=== PATIENT | male | born 1980 | race Caucasian/White ===

== ENCOUNTER 2017-06-02 15:22 | Emergency (ER) | payer MEDICAID, SELFPAY ==
[2017-06-02 15:22] VITALS: BP 141/83; PULSE 107; RESP 16; TEMP 37.7; O2SAT 97; BMI 20.9
--- NOTE | 2017-06-02 15:26 | ED.RN ---
PT HAS REQUEST NO NARCOTICS.
--- NOTE | 2017-06-02 15:47 | ED.VISSUMM ---
- ER Visit Summary Date of Service: 06/02/17 Chief Complaint: [] Low lumbar back pain for a week History of Present Illness: The patient is a 37 M [] prior history of lumbar back surgery 2011 lumbar disc L4, he reports for 1 week he has had a pain since from the scar midline down to both right and left sacral areas, he has had no trauma no fever no cough he has had normal bowel bladder habits. He has no perineal anesthesia numbness no radiation to his legs he has no swelling lesions to his lumbar back or buttock area. He is in between physicians as his insurance recently changed and he has no one to see, he absolutely assures me he has had no trauma to his body in any way Physical Examination: [] Vitals are normal he is in no distress head neck chest unremarkable abdomen soft nontender the exam is unremarkable the back there is a scar in the midline he has a pain that extends from the scar that radiates down to the right and left parasacral area. There is no fullness in the buttock region. There is no signs of pilonidal cyst. The rectal exam area is unremarkable he has normal sensation is able to stand and walk without difficulty, he can toe raise heel raise knee bend and walk with no trauma trouble at all his strength was lower extremities unremarkable, he denies any bowel or bladder complaints or incontinence Test Results: [] Emergency Department Course and Treatment: [] The etiology of his pain is unclear he was told he had one lumbar disc and otherwise no other back elements. At this time there is nothing to suggest cauda equina or anything acute or life-threatening, symptoms for 1 week he has no follow-up physicians as the main reason he came to the emergency department, he understands exact diagnosis is unclear he needs outpatient follow-up, he is treated with Toradol and Norflex here, discharged to use Naprosyn and Flexeril which she has had in the past, he is referred to follow with Dr. Wilson in a few days and return for change in symptoms Treatment Plan: [] Disposition: [] Home stable Impression: [] lumbar back pain etiology unclear history of lumbar disc surgery This note was generated with [employer] dictation software. It may contain incorrect words, spelling, and punctuation that were not noted in review of the chart prior to signing ED Disposition - Plan for ED Patient: Chief Complaint: Back Referrals: Stella Schulte DO [Primary Care Provider] -
--- NOTE | 2017-06-02 15:50 | ED.DEP ---
ED Disposition - Plan for ED Patient: Chief Complaint: Back Instructions: ED Spasm Back No Trauma, ED Sprain Strain Lumbar Prescriptions: Naproxen [Naprosyn] 500 mg PO BID PRN #20 tab Cyclobenzaprine [Flexeril] 10 mg PO TID PRN #20 tab PRN Reason: Muscle Spasm Referrals: Stella Schulte DO [Primary Care Provider] - Brice Wilson DO [STAFF PHYSICIAN] -
[2017-06-02] MEDS: Ketorolac 60 MG/2 ML Vial IM (16:05)
[2017-06-02] MEDS: Orphenadrine 60 MG/2 ML Ampul IM (16:05)
== END 2017-06-02 16:45 | disposition home or self-care (01) ==
PROVIDERS: Emergency Provider Emergency Medicine
DX: M54.5 Low back pain (principal)
CPT/HCPCS: 99282

== ENCOUNTER 2017-06-06 18:15 | Emergency (ER) | payer MEDICAID, SELFPAY ==
[2017-06-02 15:22] VITALS: BP 141/83
[2017-06-06 18:16] VITALS: BP 161/101; PULSE 82; RESP 18; TEMP 36.6; O2SAT 100; BMI 19.3
[2017-06-06 18:34] VITALS: PULSE 97; O2SAT 98
--- NOTE | 2017-06-06 18:51 | RAD_ITS ---
XR Spine Lumbar 2 or 3 Views INDICATION: pt having lower back painhx of surgery COMPARISON: September 2014 TECHNIQUE: Frontal and lateral views of the lumbar spine lateral coned-down view of the lumbosacral junction FINDINGS: There are 5 lumbar-type [id number] vertebral bodies. There is normal lumbar lordosis and no evidence of scoliosis. Height of the vertebral bodies is preserved. L5-S1 disc space appears decreased. RAD/Lumbar Spine 2 or 3 Views IMPRESSION: Findings suggestive of L5-S1 degenerative disc disease at 1922 Reported and signed by: Becca Olivarez MD Electronically Signed: Becca Olivarez MD at 18:21 EST Tel , Service support ,
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
[2017-06-06] MEDS: Ketorolac 60 MG/2 ML Vial IM (18:58)
[2017-06-06 19:22] LABS: Bacteria 0 SEEN /hpf (None Seen); Mucous, Urine 0 SEEN /hpf (<or=2+); Red Blood Cells-Urine 0 SEEN /hpf (0-5); Squamous Epithelial Cells - UA 0 SEEN /hpf (0-5); White Blood Cells 0 SEEN /hpf (0-5)
[2017-06-06 19:37] LABS: Color, Urine Yellow (Yellow); Glucose, Dipstick Normal (Normal); Ketone-Dipstick Negative (Negative); Leukocyte Esterase-Dipstick Negative /ul (Negative); Nitrite-Dipstick Negative (Negative); Occult Blood-Urine Negative /ul (Negative); Protein-Dipstick 15 mg/dl (Negative); Specific Gravity, Urine 1.025 (1.002-1.030); Urine Bilirubin Dipstick Negative (Negative); Urine Clarity Clear (Clear); Urine Urobilinogen Normal (Normal)
[2017-06-06] MEDS: Orphenadrine 60 MG/2 ML Ampul IM (20:18)
--- NOTE | 2017-06-06 20:55 | ED.DEP ---
ED Disposition - Plan for ED Patient: Chief Complaint: Back Instructions: ED Sprain Strain Lumbar Prescriptions: Lidocaine [Lidoderm Patch] 1 patch TOPICAL DAILY #30 patch Additional Instructions: follow up with primary care and pain management as discussed
[2017-06-06 21:04] VITALS: PULSE 92; RESP 16; O2SAT 98
== END 2017-06-06 21:05 | disposition home or self-care (01) ==
PROVIDERS: Emergency Provider Emergency Medicine; Family Provider Family Medicine; PCP Family Medicine
DX: G89.29 Other chronic pain (principal); M54.5 Low back pain; M51.36 Other intervertebral disc degeneration, lumbar region; Z72.0 Tobacco use
CPT/HCPCS: 72100; 81001; 96372; 99282

== ENCOUNTER → 2017-06-10 10:47 | Outpatient (CLI) | payer MEDICAID, SELFPAY ==
[2017-06-06 18:16] VITALS: BP 161/101; BMI 19.3
[2017-06-10 12:21] LABS: Absolute Lymphocyte Count 2.39 X10^3/ul (0.83-4.51); Absolute Neutrophil Count 7.7 X10^3/uL (2.0-7.7); Basophil# 0.02 X10^3/uL; Basophil% 0.2 % (0-1); Eosinophil# 0.06 X10^3/uL; Eosinophils% 0.5 % (0-5); Hematocrit 39.1 % (40-54); Hemoglobin 12.6 g/dl (13.0-16.5); Lymphocyte # 2.39 X10^3/ul (4.0); Lymphocyte % 21.7 % (19-41); Mean Corp Hgb Conc 32.2 g/gl (32-36); Mean Corpuscular Hgb 30.9 pg (27.0-32.0); Mean Corpuscular Volume 95.8 fL (80-94); Mean Platelet Vol. 10.1 fl (6.2-12.0); Monocyte# 0.84 X10^3/uL; Monocyte% 7.6 % (0-10); Neutrophil % 69.8 % (47-70); Platelet Count 389 K/mm3 (150-450); RBC Distribution Width CV 14.5 % (11.6-14.6); RBC Distribution Width SD 50.3 fl (35.1-43.9); Red Blood Count 4.08 M/mm3 (4.6-6.2)
[2017-06-10 12:28] LABS: POSITIVE COUNT NO; POSITIVE DIFFERENTIAL NO; POSITIVE MORPHOLOGY NO
[2017-06-10 12:30] LABS: Color, Urine Yellow (Yellow); Glucose, Dipstick Normal (Normal); Ketone-Dipstick 5 mg/dl (Negative); Leukocyte Esterase-Dipstick 25 /ul (Negative); Nitrite-Dipstick Negative (Negative); Occult Blood-Urine 10 /ul (Negative); Protein-Dipstick Negative (Negative); Urine Bilirubin Dipstick Negative (Negative); Urine Clarity Clear (Clear); Urine Urobilinogen Normal (Normal)
[2017-06-10 12:49] LABS: Bacteria RARE /hpf (None Seen); Mucous, Urine 1+ /hpf (<or=2+); Red Blood Cells-Urine 0-5 SEEN /hpf (0-5); Squamous Epithelial Cells - UA 0-5 SEEN /hpf (0-5); White Blood Cells 0-5 SEEN /hpf (0-5)
[2017-06-10 12:50] LABS: Calcium Oxalate Crystals Ur 1+ /hpf (<or=2+)
[2017-06-10 12:55] LABS: Amphetamine Urine VISTA NEGATIVE (<1000 ng/mL); Barbiturate Urine VISTA NEGATIVE (< 200 ng/mL); Benzodiazepine Urine VISTA NEGATIVE (< 200 ng/mL); Cocaine Urine VISTA NEGATIVE (< 300 ng/mL); Ecstacy Urine VISTA NEGATIVE (< 500 ng/mL); Methadone Urine VISTA NEGATIVE (< 300 ng/mL); PCP Urine VISTA NEGATIVE (< 25 ng/mL); THC Urine VISTA NEGATIVE (< 50 ng/mL); Vista UDS pH Range 6
[2017-06-10 13:15] LABS: ALB/GLOB Ratio 1.2 RATIO (0.9-2.4); AST(SGOT) 9 U/L (15-37); Alanine Aminotransfer ALT/SGPT 22 U/L (16-61); Albumin, Serum 3.8 g/dL (3.2-5.0); Alkaline Phosphatase 73 U/L (45-117); Anion Gap 10 (5-15); BUN 14 mg/dL (7-18); Calcium,Total 8.4 mg/dL (8.5-10.1); Chloride 106 mmol/L (98-107); Cholesterol 143 mg/dL (200); Creatinine, Serum 0.82 mg/dL (0.70-1.30); EST Glomerular Filtration Rate 111 mL/min (>60); Est Glom Filt Rate - Afr Amer 135 mL/min (>60); Globulin 3.1 g/dL (2.2-4.2); Glucose 89 mg/dL (74-106); High Density Lipoprotein 34 mg/dL; Potassium 3.5 mmol/L (3.5-5.1); Protein, Total 6.9 g/dL (6.4-8.2); Sodium Level 141 mmol/L (136-145); Thyroid Stim Hormone (TSH) 0.95 uIU/mL (0.358-3.74); Triglycerides 196 mg/dL; Very Low Density Lipoprotein 39 mg/dL (5-40)
[2017-06-10 13:17] LABS: Hemoglobin A1c 5.5 % (4.2-6.3)
== END ==
PROVIDERS: Family Provider Family Medicine; PCP Family Medicine; Visit Provider Family Medicine
DX: R19.4 Change in bowel habit (principal); F32.9 Major depressive disorder, single episode, unspecified; Z13.220 Encounter for screening for lipoid disorders; Z83.3 Family history of diabetes mellitus; Z87.898 Personal history of other specified conditions
CPT/HCPCS: 36415; 80053; 80061; 80307; 81001; 83036; 84443; 85025

== ENCOUNTER → 2017-06-27 08:10 | Outpatient (CLI) | payer MEDICAID, SELFPAY ==
--- NOTE | 2017-06-27 08:28 | MRI_ITS ---
STUDY: MRI LUMBAR SPINE WITH AND WITHOUT CONTRAST REASON FOR EXAM: Male, 37 years old. Radiculopathy. Back pain and bilateral leg pain with numbness and tingling. TECHNIQUE: Standardized fat and water weighted pulse sequences were obtained in the sagittal and axial planes. 7 ml of Gadavist contrast material was administered for the contrast portion of the examination. COMPARISON: 03/15/2013. FINDINGS: T11-T12: (Sagittal only). Normal endplates. Normal disc height, hydration and morphology. Normal central canal and bilateral intervertebral neural foramina. T12-L1: (Sagittal only). Normal endplates. Normal disc height, hydration and morphology. Normal central canal and bilateral intervertebral neural foramina. Normal lumbar lordosis. There is no substantial scoliosis. Normal conus medullaris that terminates at the upper L1 vertebral body level. L1-2: Normal endplates. Normal disc height, hydration and morphology. Normal bilateral facet joints. Normal central canal and bilateral lateral recesses. Normal bilateral intervertebral neural foramina. L2-3: Normal endplates. Normal disc height, hydration and morphology. Normal bilateral facet joints. Normal central canal and bilateral lateral recesses. Normal bilateral intervertebral neural foramina. L3-4: Normal endplates. Normal disc height, hydration and morphology. Normal bilateral facet joints. Normal central canal and bilateral lateral recesses. Normal bilateral intervertebral neural foramina. L4-5: Normal endplates. Minimal disc space height narrowing. Mild loss of disc hydration. Interval resolution of the small posterior midline and caudal disc extrusion following discectomy. Left L4 hemilaminectomy defect and partial facetectomy. Left lateral extradural fat occupying the surgical tract. Normal central canal and bilateral lateral recesses. Normal bilateral intervertebral neural foramina. Mild right degenerative facet arthropathy. L5-S1: Normal endplates. Moderate disc space narrowing with mild loss of disc hydration. No extruded disc fragment. Normal central canal and bilateral lateral recesses. Normal facet joints. Normal bilateral intervertebral neural foramina. Normal visualized sacral ala. Normal visualized paraspinous soft tissue structures. No abnormal enhancing lesions intradurally and extradurally. MRI/Spine Lumbar W/WO Contrast IMPRESSION: 1. No MRI evidence of recurrent or new lumbar extruded disc fragment. 2. Interval resolution of L4-L5 posterior midline and caudal disc extrusion following discectomy. 3. Moderate L5-S1 disc space height narrowing with mild loss of disc hydration is unchanged. Electronically Signed: Preet Jo MD at 13:15 EST , Service support ,
== END ==
PROVIDERS: Family Provider Family Medicine; PCP Family Medicine; Visit Provider Family Medicine
DX: M54.16 Radiculopathy, lumbar region (principal)
CPT/HCPCS: 72158; A9585

== ENCOUNTER 2017-07-29 15:00 | Outpatient (RCR) | payer MEDICAID, SELFPAY ==
--- NOTE | 2017-06-23 13:19 | HP.PTEVAL_ITS ---
Patient's Visit Information MOMO CASTILLO is a 37 year old M referred to Physical Therapy by GIOVANNY HAMM with a diagnosis of LUMBAR POST LAMINECTOMY SYNDROME. Date of Evaluation: 06/23/17 Physical Therapist: Verna Ray Visit Plan Frequency: 2-3x /Week Duration: 4-6 Weeks Plan: AQUATIC THERAPY. POSTURE CORRECTION/STRENGTHENING, INSTRUCTION IN APPROPRIATE BODY MECHANICS AND ACTIVITY MODIFICATIONS. DLS STARTING WITH A NEUTRAL SPINE PROGRESSING ROM TOLERATED. CANDACE LE ROM, STRETCHING AND STRENGTHENING. HEP INSTRUCTION. PAIN RELEIF. - Subjective Subjective: Work/Leisure: UNEMPLOYEED SINCE 2010. Disability: NOT CURRENTLY. RE-APPLYING. Present symptoms: PAIN, NUMBNESS AND TINGLING FROM ABOUT 6 ABOVE BELLY BUTTON DOWN. DOWN BOTH LEGS. Present since: 2010. Pain Scale: WORST 10/10, LEAST 6/10. Currently: 7/10. OVER-ALL, PATIENT REPORTS HE IS WORSENING. HE REPORTS HE THINKS HIS DDD HAS SPIKED AND HE IS GETTING MORE NUMBNESS AND TINGLING IN HIS LEGS AND HIS LEGS ARE GIVING OUT MORE. Commenced as a result of: LIFTING AT WORK IN 2009 AND HERNIATED A DISK IN HIS LOW BACK. Symptoms at onset: BACK. Worse: STANDING, WALKING, SITTING, BENDING, LIFTING, REACHING, CARRYING THINGS, CAR RIDES, BUMPS IN THE CAR. Better: MASSAGE, BATH. Disturbed sleep: YES. Previous history/treatments: FIRST BACK SURGERY [address] PECK FOR HERNIATED LUMBAR DISC. 2016 SECOND BACK SURGERY AT [facility] BY DR. BISWAS. BOTH SURGERIES WERE LAMINECTOMIES OR DISCECTOMIES BUT PATIENT REPORTS HE HAS NOT HAD LUMBAR FUSION YET AND THE DOCTORS ARE TRYING TO POSTPONE FUSION LONG POSSIBLE BUT GOING FOR MRI TUESDAY AND WILL RECONSIDER AT THAT POINT. PHYSICAL THERAPY SEVERAL TIMES AND CHIROPRACTOR AND ACCUPUNCTURE, AND MASSAGE THERAPY, AND STRETCHING THERAPY. MULTIPLE ROSHAN'S - MANY. AQUATIC THERAPY HAS HELPED SOME IN THE PAST. PATIENT REPORTS HIS LEGS HAVE BEEN NUMB SINCE SURGERY 2010. OTHER: PATIENT REPORTS PAIN MGMT HAS RECOMMENDED CAUDAL TYPE PROCEEDURE. Coughing/sneezing/straining: POSITIVE. Gait: HAS TO USE A W/C NEEDED AT HOME. STATES HE IS PRETTY MUCH HOMEBOUND EXCEPT OCCASSIONAL EVENTS FOR CHILD AND MEDICAL APPOINTMENTS. DOES NOT USE CANE , CRUTCHES OR WALKER. Difficulty initiating urinatin: NO. Accidents: NO. Unexplained weight loss: NO. Imaging: RECENT LUMBAR X-RAYS - Findings suggestive of L5-S1 degenerative disc disease. PMH: TACHYCARDIA. LEFT ANKLE FX LONG TIME AGO. Recent major surgery: PACEMAKER PLACEMENT 2017 THEN A MAGNET PULLED IT OUT AT HOME ABOUT 6 MONTHS LATER. PATIENT REFUSES TO HAVE IT REPLACED. - Objective Sitting Posture: POOR. Standing Posture: POOR. Lordosis: REDUCED. Lateral shift: LEFT. Relevant shift: N/A. Active Correction of posture: WORSE. Other Observations: INDEP GAIT INTO PT WITHOUT ASSISTIVE DEVICE WITH SLOW ANTALGIC GAIT WITH MILD LIMP ON RIGHT LE. ABLE TO SLS ON EACH LEG X > 20 SEC. RIGHT ILIAC CREST HIGHER THAN LEFT. WEARING A RIGHT THIGH COMPRESSION BRACE TO HELP WITH PAIN PER PATIENT REPORT. PATIENT REPORTS HIS THIGHS SWELL AT TIMES. Motor deficit: CANDACE LE STRENGTH GROSSLY 3+ TO 4-/5 WITH MMT WITH RIGHT LE WEAKNESS GREATER THAN LEFT. RIGHT DORSIFLEXION 3-/5. Sensory deficit: ALTERED SENSATION CANDACE LE'S. DECREASED SENSATION TO LIGHT TOUCH CANDACE LE'S. ROM deficit: TIGHT CANDACE LE QUADS, HS'S, HIP FLEXORS, AND GASTROC SOLEUS COMPLEX'S. Dural Signs: POSITIVE CANDACE LE'S. Lumbar mvmt loss: flex - MOD TO TAYLOR. ext - TAYLOR. R SG - MOD TO TAYLOR. L SG - MOD TO TAYLOR. Core strength: POOR. Palpation: TENDERNESS AND PRESSURE/NUMBNESS C/O'S OF THE ENTIRE LUMBAR REGION WITH PALPATION AND HYPERSENSATIVITY INCISION AREAS. - Goals Goal 1:: DECREASE C/O BACK AND CANDACE LE SX'S Goal Time Frame: 4-6 Weeks Goal 2:: IMPROVE PERSONAL CARE, LIFTING, WALKING, SITTING, STANDING, SLEEP, SOCIAL LIFE, TRAVEL AND EMPLOYMENT/HOMEMAKING FUNCTION. Goal Time Frame: 4-6 Weeks Goal 3:: INSTRUCT IN PROPHYLAXIS Goal Time Frame: 4-6 Weeks - Rehabilitation Potential Rehabilitation Potential: Fair - Anticipated Interventions Patient/Client Instruction: Educate patient on: Condition, Plan of Care, Risk Factors, Benefits of Fitness Program For the Purpose of:: To improve self management Therapeutic Exercise to Include: Strength training, Body mechanics, Postural training, Flexibilty training, Gait and locomotor training, In an aquatic setting, Dynamic Lumbar Stabilization For the Purpose of:: To improve ability of physical actions for home/community/ work/leisure Thank you for the opportunity to evaluate your patient. For Medicare and Medicare HMO plans, please review the plan of care and approve it. It will need to be FAXED BACK to us at [phone] for Medicare purposes. Please let me know if there are questions or concerns regarding this plan of care. Physician Signature: Date:
--- NOTE | 2017-08-25 13:07 | HP.PTDCNRP_ITS ---
HP - Discharge Summary (1) - Patient Information MOMO CASTILLO was seen in my office for initial evaluation on 06/23/17. The following Plan of Care was established for this patient: Initial Frequency: 2-3x /Week Initial Duration: 4-6 Weeks - Anticipated Interventions Patient/Client Instruction: Educate patient on: Condition, Plan of Care, Risk Factors, Benefits of Fitness Program For the Purpose of:: To improve self management Therapeutic Exercise to Include: Strength training, Body mechanics, Postural training, Flexibilty training, Gait and locomotor training, In an aquatic setting, Dynamic Lumbar Stabilization For the Purpose of:: To improve ability of physical actions for home/community/ work/leisure This patient was last seen in our office . Pertinent comments regarding their Physical therapy will appear below: This patient has not returned to Physical Therapy and is appropriate to return to MD for further follow-up as needed. At this point I will be discontinuing this patient from physical therapy. I would be happy to see this patient again in the future if found appropriate by the physician. Thank you! Verna Rooney
== END 2017-07-29 19:00 | disposition home or self-care (01) ==
LOC: PT 15:00
PROVIDERS: Family Provider Family Medicine; PCP Family Medicine
DX: M96.1 Postlaminectomy syndrome, not elsewhere classified (principal)
CPT/HCPCS: 97113; 97162; 97530

== ENCOUNTER 2018-01-17 06:58 | Emergency (ER) | payer SELFPAY ==
[2018-01-17 06:59] VITALS: BP 127/97; PULSE 125; RESP 16; TEMP 37.2; O2SAT 97; BMI 19.3
--- NOTE | 2018-01-17 07:04 | RAD_ITS ---
STUDY: X-RAY - RIGHT HAND REASON FOR EXAM: Pain and swelling of the fourth and fifth metacarpals after injury. TECHNIQUE: 3 view(s) of the hand. COMPARISON: None. FINDINGS: Normal radiocarpal articulation. Normal distal radioulnar joint. Normal visualized carpal bones. Normal carpal articulations Normal carpometacarpal articulation of the thumb. Normal second through fifth carpometacarpal joints. Normal metacarpi. Normal metacarpophalangeal joint of the thumb. Normal interphalangeal joint of the thumb. Normal proximal and distal phalanges of the thumb. Normal metacarpophalangeal joints of the second through fifth fingers. Normal proximal and distal interphalangeal joints of the second through fifth fingers. Normal phalanges of the second through fifth fingers. The soft tissue structures are unremarkable. RAD/Hand Min 3 Views IMPRESSION: Normal x-ray examination of the right hand without demonstrated fracture. Electronically Signed: Ortiz Anthony MD at 7:52 EDT Tel , Service support ,
[2018-01-17] MEDS: Naproxen 500 MG Tablet PO (07:08)
--- NOTE | 2018-01-17 07:09 | ED.VISSUMM ---
- ER Visit Summary Date of Service: 01/17/18 Chief Complaint: Right hand pain secondary to blunt trauma History of Present Illness: The patient is a 37 M who is right-handed presents with injury to right hand that occurred last evening. He states his hand was crushed in the band door. He reports increased pain. He denies paresthesia, anesthesia or motor weakness. He has limited use secondary to pain. There is no history of prior injury. He is on no anticoagulant. Patient states he has not taken anything for the discomfort. Physical Examination: Vital signs are noted. Blood pressure is elevated 05/28/1996 heart rate is 125. He does appear in discomfort. There is discoloration and soft tissue swelling over the dorsal ulnar side of the right hand. There is pain palpation over the proximal fourth and fifth medical carpal bone. There is no rotational malalignment. There is no pain the patient over the distal radius ulna. The extensor commonest tendon and extensor minimize tendon are intact. The flexor digitorum superficialis and flexor digitorum profundus are intact. There is normal sensation of the digits. Capillary refill is normal. There is no subungual hematoma noted. Test Results: Three-view x-ray of the hand interpreted by me as negative for fracture, subluxation or dislocation. No foreign body noted. Emergency Department Course and Treatment: He was medicated with Naprosyn 500 mg. Three-view x-ray of the hand was obtained to evaluate for fracture. Treatment Plan: Rest, ice, elevation and anti-inflammatories Disposition: Discharged with prescription for Naprosyn Impression: Contusion right hand secondary to blunt trauma initial encounter This note was generated with [employer] dictation software. It may contain incorrect words, spelling, and punctuation that were not noted in review of the chart prior to signing ED Disposition - Plan for ED Patient: Disposition: Home or Assisted Living Chief Complaint: Upper Extremity Injury Instructions: ED Contusion Hand Prescriptions: Naproxen [Naprosyn] 500 mg PO BID #14 tab Referrals: Stephanie Delatorre MD [Primary Care Provider] - 1 Week if not improving
--- NOTE | 2018-01-17 07:21 | ED.DCSUM_ITS ---
- ER Visit Summary Date of Service: 01/17/18 Chief Complaint: Right hand pain secondary to blunt trauma History of Present Illness: The patient is a 37 M who is right-handed presents with injury to right hand that occurred last evening. He states his hand was crushed in the band door. He reports increased pain. He denies paresthesia, anesthesia or motor weakness. He has limited use secondary to pain. There is no history of prior injury. He is on no anticoagulant. Patient states he has not taken anything for the discomfort. Physical Examination: Vital signs are noted. Blood pressure is elevated 1996 heart rate is 125. He does appear in discomfort. There is discoloration and soft tissue swelling over the dorsal ulnar side of the right hand. There is pain palpation over the proximal fourth and fifth medical carpal bone. There is no rotational malalignment. There is no pain the patient over the distal radius ulna. The extensor commonest tendon and extensor minimize tendon are intact. The flexor digitorum superficialis and flexor digitorum profundus are intact. There is normal sensation of the digits. Capillary refill is normal. There is no subungual hematoma noted. Test Results: Three-view x-ray of the hand interpreted by me as negative for fracture, subluxation or dislocation. No foreign body noted. Emergency Department Course and Treatment: He was medicated with Naprosyn 500 mg. Three-view x-ray of the hand was obtained to evaluate for fracture. Treatment Plan: Rest, ice, elevation and anti-inflammatories Disposition: Discharged with prescription for Naprosyn Impression: Contusion right hand secondary to blunt trauma initial encounter This note was generated with [employer] dictation software. It may contain incorrect words, spelling, and punctuation that were not noted in review of the chart prior to signing ED Disposition - Plan for ED Patient: Disposition: Home or Assisted Living Chief Complaint: Upper Extremity Injury Instructions: ED Contusion Hand Prescriptions: Naproxen [Naprosyn] 500 mg PO BID #14 tab Referrals: Stephanie Delatrore MD [Primary Care Provider] - 1 Week if not improving
== END 2018-01-17 08:13 | disposition home or self-care (01) ==
PROVIDERS: Emergency Provider Emergency Medicine; Family Provider Family Medicine; PCP Family Medicine
DX: S60.221A Contusion of right hand, initial encounter (principal); W23.0XXA Caught, crushed, jammed, or pinched between moving objects, initial encounter; Y93.9 Activity, unspecified; Y92.89 Other specified places as the place of occurrence of the external cause; Y99.9 Unspecified external cause status; Z72.0 Tobacco use
CPT/HCPCS: 73130; 99281

== ENCOUNTER 2021-10-09 13:31 | Outpatient (REF) | payer SELFPAY ==
[2021-10-09 13:32] VITALS: BP 146/91; PULSE 71; RESP 18; TEMP 36.9; O2SAT 96; BMI 19.6
--- NOTE | 2021-10-09 14:11 | CT_ITS ---
STUDY: CT ABDOMEN AND PELVIS WITH CONTRAST REASON FOR EXAM: Male, 41 years old. lower abd pain RADIATION DOSAGE (If Supplied By Facility): CTDIvol = ( 10.47 ) mGy, DLP = ( 386.89 ) mGycm TECHNIQUE: Transaxial images were obtained from the dome of the diaphragm to the symphysis pubis without oral contrast. IV 100mL Isovue-370 was administered. Sagittal and coronal images were reconstructed. Individualized dose optimization techniques were used for this CT. COMPARISON: 10/19/1713 FINDINGS: The visualized lung bases are unremarkable. The visualized portions of the heart are within normal limits. Normal liver. The gallbladder is contracted. Normal spleen. Normal pancreas. Normal bilateral adrenal glands. Multiple bilateral small nonobstructing renal stones. 2 mm obstructing stone at the left ureteral skull junction with mild ureteral dilatation and hydronephrosis. Normal visualized stomach. Normal small intestine. Normal colon. The appendix is visualized and appears normal. Normal abdominal aorta. Normal inferior vena cava. Normal retroperitoneum. Normal urinary bladder. Normal abdominal wall. Normal osseous structures. CT/Abdomen/Pelvis W IV Cont ONLY IMPRESSION: 2 mm obstructing stone at the left uterovesical junction with mild ureteral dilatation and hydronephrosis. Electronically Signed: Jorge Calix MD at 15:56 EDT ,
--- NOTE | 2021-10-09 14:12 | EDS_ITS ---
HPI HPI - GI History of Present Illness Chief Complaint: Abd Pain Detail of Chief Complaint: Nausea and vomiting. Informant: patient Abdominal Pain/Flank Pain Onset: Days Context: Gradual Onset Timing: Intermittent Quality: Aching Current Severity: Mild Maximum Severity: Mild Worsened by: Nothing Relieved by: Nothing Nausea/Vomiting/Emesis GI Symptom: Positive for Nausea and Vomiting Onset: Today and Yesterday Severity: Mild Diarrhea/Melena/Hematochezia GI Symptom: Negative for Diarrhea, Melena and Hematochezia Associated Symptoms Associated Symptoms: Negative for Dysuria, Frequency and Hematuria Narrative Narrative: 41-year-old male no seen past medical history prior back surgery denies any prior abdominal surgery. Patient states he has had lower suprapubic abdominal pain with nausea and vomiting. No diarrhea no constipation last bowel movement this morning. No dysuria hematuria no fever. Currently is incarcerated in shelter he was brought to the emergency department by [facility] department. Prior similar symptoms: No Recent Illness/Hospitalization: No PFSH PFSH Medical History no medical history no medical history Allergy/AdvReac Type Severity Reaction Status Date / Time No Known Allergies Allergy Verified 10/09/21 13:32 Social History Smoking Status: Current every day smoker tobacco type: cigarettes ROS ROS ED ROS Narrative Abdominal pain. Nausea. Vomiting. Review of Systems ROS Unobtainable: Denies due to encephalopathy Constitutional Constitutional ED: Denies fever(s) ENT ENT ED: Denies ear pain Cardiovascular Cardiovascular: Denies chest pain Respiratory/Chest Respiratory/Chest: Denies cough or dyspnea Gastrointestinal Gastrointestinal: Reports abdominal pain, nausea and vomiting; Denies constipat ion or diarrhea Genitourinary Genitourinary ED: Denies dysuria or hematuria Musculoskeletal Musculoskeletal: Denies myalgias Integumentary Denies rash Neurologic Neurologic: Denies headache(s) Psychiatric Psychiatric: Denies depression Endocrine Endocrinology: Denies polyuria Hematologic/Lymphatic Hematologic/Lymphatic: Denies easy bruising Allergic/Immunologic Allergic/Immunologic ED: Denies urticaria EXAM Physical Exam Narrative Exam Narrative: 41-year-old male no acute distress. To [facility] deputies in the room. Vital signs stable afebrile he does not look septic or toxic. H EENT exam unremarkable. Moist membranes. Neck nontender no lymphadenopathy. Lungs clear to auscultation bilaterally. Heart regular rhythm rate about 70 no murmur. Abdomen soft nondistended normal bowel sounds no peritoneal signs. Tender suprapubically. No hernia or mass. No obstruction. No signs of any urinary distention of the bladder. Moving all 4 extremities. Nontender no edema. Back nontender. Neurologically is awake and alert. Const Vital Signs: 10/09/21 13:32 Temperature 98.4 F Temperature Source Temporal Pulse Rate 71 Respiratory Rate 18 Blood Pressure 146/91 H Blood Pressure Mean 109 Pulse Ox 96 Oxygen Delivery Method Room Air Positive well nourished and well developed; Negative for obese, cachectic, contractures or unkempt General Appearance ED: well developed and NAD; Negative for unkempt, cachectic, contractures or pallor Nutritional Appearance: Negative for cachectic or obese HEENT Reports moist mucous membranes normocephalic and atraumatic Eyes PERRL and EOMs intact bilaterally General Eye ED: Negative for pale conjunctiva or scleral icterus Neck no lymphadenopathy, supple and no JVD General: Negative for tenderness Resp normal respiratory effort and clear to auscultation bilaterally Auscultation: Negative for rales, rhonchi or wheezes Cardio regular rate, regular rhythm, S1 normal heart sound, S2 normal heart sound and no murmurs GI non-distended and no masses; Negative for non-tender Auscultation: normoactive bowel sounds Palpation: soft and tender; Negative for guarding, rigid or rebound tenderness present Back/Spine no CVA tenderness General Back: Negative for CVA tenderness Cervical Spine: Negative for cervical spine tenderness Thoracic Spine / Upper Back: Negative for thoracic spinal tenderness Extremity full ROM General Extremety ED: Negative for edema or tenderness General Extremity: Negative for edema Neuro moves all extremities Sensorium / Orientation: alert, oriented to person, oriented to place and oriented to time; Negative for orientation impaired, confused, lethargic or stuporous Motor Exam: strength 5/5 throughout Psych mental status grossly normal and thought process normal Appearance: Negative for unkempt Attitude: No agitated Mood & Affect: Negative for depressed or tearful Skin no wounds General Skin Exam: Negative for jaundice or pallor Lesions: no lesions Rashes: no rashes MDM MDM MDM Narrative Medical decision making narrative: 41-year-old male with abdominal pain with nausea vomiting. Mild suprapubic tenderness. No McBurney's point or Pineda sign tenderness. No distention. CAT scan labs pending. Treated with Zofran for nausea, IV fluids and Toradol for pain. Repeat exam patient is doing well at 4:10 PM. Discussed test results with he and the deputies in the room. He will be discharged back to shelter. He will be given 2 [place] here prior to discharge. Tylenol and Motrin there for pain. Lab Data Attestation: I reviewed the patient's lab results. Lab results narrative: CBC shows a white count 12.5. H&H of 12 and 37. Electrolytes show a gap of 5. BUN and creatinine 15 and 1.34. Liver enzymes normal. Urinalysis shows 10-25 red cells otherwise no signs of infection. CAT scan consistent with a 2 mm left ureteral calculi. Labs: Laboratory Results - last 24 hr 10/09/21 10/09/21 10/09/21 14:20 14:20 14:20 WBC 12.5 H RBC 4.04 L Hgb 12.7 L Hct 37.7 L MCV 93.3 MCH 31.4 MCHC 33.7 RDW Std Deviation 39.8 RDW Coeff of Adama 11.6 Plt Count 254 MPV 10.4 Immature Gran % (Auto) 0.300 Neut % (Auto) 88.1 H Lymph % (Auto) 6.5 L Bates % (Auto) 4.7 Eos % (Auto) 0.2 Baso % (Auto) 0.2 Absolute Neuts (auto) 11.0 H Absolute Lymphs (auto) 0.81 L Nucleated RBC % 0 Sodium 140 Potassium 4.2 Chloride 106 Carbon Dioxide 29.0 Anion Gap 5 BUN 15 Creatinine 1.34 H Estim Creat Clear Calc 73.07 Est GFR (MDRD) Af Amer 75 Est GFR (MDRD) Non-Af 62 BUN/Creatinine Ratio 11.2 Glucose 105 Calcium 9.5 Total Bilirubin 0.30 AST 19 ALT 34 Alkaline Phosphatase 92 Total Protein 7.6 Albumin 4.3 Globulin 3.3 Albumin/Globulin Ratio 1.3 Urine Color Yellow Urine Clarity Clear Urine pH 8.0 Ur Specific [place] 1.015 Urine Protein Negative Urine Glucose (UA) Normal Urine Ketones Negative Urine Occult Blood 150 H Urine Nitrite Negative Urine Bilirubin Negative Urine Urobilinogen Normal Ur Leukocyte Esterase Negative Urine RBC 10-25 SEEN Urine WBC 0 SEEN Ur Squamous Epith Cells 0-5 SEEN Urine Bacteria 0 SEEN Urine Mucus 0 SEEN Radiography Diagnostic Testing: Clinical Impression(s) from Imaging Studies Abdomen/Pelvis CT 10/09/21 14:11 IMPRESSION: 2 mm obstructing stone at the left uterovesical junction with mild ureteral dilatation and hydronephrosis. Electronically Signed: Jorge Calix MD at 15:56 EDT , Discharge Plan Triage Chief Complaint: Abd Pain Other Complaint: Nausea/Vomiting ED Provider: Bharat Mclean Dx/Rx/DC Orders Clinical Impression: Kidney stone on left side Instructions: ED Kidney Stone w/ Colic Primary Care Provider: Stephanie Delatorre Referrals: Stephanie Delatorre MD [Primary Care Provider] - 3-5 Days if not improving Activity Restrictions/Additional Instructions: You have a 2 mm kidney stone on the left side by your bladder. It should pass without difficulty. Motrin and Tylenol for pain. Plenty of fluids. Follow-up if not improving. Return if worse. Your other labs are unremarkable. Disposition Disposition: Home, Self Care
[2021-10-09] MEDS: 0.9% Normal Saline 1,000 ML 1000 ML IV (14:22)
[2021-10-09] MEDS: Ketorolac 30 MG/ML Syringe IV (14:22)
[2021-10-09] MEDS: Ondansetron 4 MG/2 ML Vial IV (14:22)
[2021-10-09 14:24] LABS: Bacteria 0 SEEN /hpf (None Seen); Mucous, Urine 0 SEEN /hpf (<or=2+); White Blood Cells 0 SEEN /hpf (0-5)
[2021-10-09 14:28] LABS: Absolute Lymphocyte Count 0.81 X10^3/uL (0.83-4.51); Basophil# 0.03 X10^3/uL; Basophil% 0.2 % (0-1); Eosinophil# 0.02 X10^3/uL; Eosinophils% 0.2 % (0-5); Hematocrit 37.7 % (40-54); Hemoglobin 12.7 g/dL (13.0-16.5); Lymphocyte # 0.81 X10^3/ul (0.83-4.51); Lymphocyte % 6.5 % (19-41); Mean Corp Hgb Conc 33.7 g/dL (32-36); Mean Corpuscular Hgb 31.4 pg (27.0-32.0); Mean Corpuscular Volume 93.3 fL (80-94); Mean Platelet Vol. 10.4 fl (6.2-12.0); Monocyte# 0.59 X10^3/uL; Monocyte% 4.7 % (0-10); NRBC Flagged by Analyzer 0 % (0-5); Neutrophil # 11.02 X10^3/uL (2.7-7.7); Neutrophil % 88.1 % (47-70); Platelet Count 254 K/mm3 (150-450); RBC Distribution Width CV 11.6 % (11.6-14.6); RBC Distribution Width SD 39.8 fl (35.1-43.9); Red Blood Count 4.04 M/mm3 (4.6-6.2); White Blood Count 12.5 K/mm3 (4.4-11.0)
[2021-10-09 14:37] LABS: Color, Urine Yellow (Yellow); Glucose, Dipstick Normal (Normal); Ketone-Dipstick Negative (Negative); Leukocyte Esterase-Dipstick Negative /ul (Negative); Nitrite-Dipstick Negative (Negative); Occult Blood-Urine 150 /ul (Negative); Protein-Dipstick Negative (Negative); Specific Gravity, Urine 1.015 (1.002-1.030); Urine Bilirubin Dipstick Negative (Negative); Urine Clarity Clear (Clear); Urine Urobilinogen Normal (Normal)
[2021-10-09 14:47] LABS: ALB/GLOB Ratio 1.3 RATIO (0.9-2.4); AST(SGOT) 19 U/L (15-37); Alanine Aminotransfer ALT/SGPT 34 U/L (16-61); Albumin, Serum 4.3 g/dL (3.2-5.0); Alkaline Phosphatase 92 U/L (45-117); Anion Gap 5 (5-15); BUN 15 mg/dL (7-18); BUN/Creat Ratio 11.2 RATIO (10-20); Calcium,Total 9.5 mg/dL (8.5-10.1); Chloride 106 mmol/L (98-107); Creatinine, Serum 1.34 mg/dL (0.70-1.30); EST Glomerular Filtration Rate 62 mL/min (>60); Est Glom Filt Rate - Afr Amer 75 mL/min (>60); Estimated Creatinine Clearance 73.07 ml/min; Globulin 3.3 g/dL (2.2-4.2); Glucose 105 mg/dL (74-106); Potassium 4.2 mmol/L (3.5-5.1); Protein, Total 7.6 g/dL (6.4-8.2); Red Blood Cells-Urine 10-25 SEEN /hpf (0-5); Sodium Level 140 mmol/L (136-145); Squamous Epithelial Cells - UA 0-5 SEEN /hpf (0-5)
[2021-10-09] MEDS: HYDROcodone Bitartrate/Apap 5/325 Tablet PO (16:16)
== END 2021-10-09 16:24 | disposition home or self-care (01) ==
LOC: EDREF 13:31
PROVIDERS: PCP Family Medicine; Visit Provider Emergency Medicine
DX: N13.2 Hydronephrosis with renal and ureteral calculous obstruction (principal); R19.7 Diarrhea, unspecified; F17.210 Nicotine dependence, cigarettes, uncomplicated; R10.2 Pelvic and perineal pain
CPT/HCPCS: 74177; 80053; 81001; 85025; J2405; Q9967; J7030; A4216